=== PATIENT | male | born 1950 | race Caucasian/White ===

== ENCOUNTER 2019-09-21 08:29 | Emergency (ER) | payer MEDICARE, OTHER ==
[~2019-09-21] VITALS: Ht 180.3 cm; Wt 89.0 kg
[2019-09-21] MEDS ORDERED: rabies immune globulin/PF 150 unit/ml inj IMVAC ONE (09:05)
[2019-09-21] MEDS ORDERED: rabies vaccine (PCEC)/PF 2.5 unit kit IMVAC ONE (09:05)
[2019-09-21] MEDS ORDERED: DOXY100C77 PO (09:25)
[2019-09-21 09:37] VITALS: BP 133/74
--- NOTE | 2019-09-21 11:19 | NUR ---
[facility] RN will complete and fax.
== END 2019-09-21 10:04 | disposition home or self-care (01) ==
LOC: ER 08:30
DX: S51.832A Puncture wound without foreign body of left forearm, initial encounter (principal); E78.00 Pure hypercholesterolemia, unspecified; J44.9 Chronic obstructive pulmonary disease, unspecified; K21.9 Gastro-esophageal reflux disease without esophagitis; F41.9 Anxiety disorder, unspecified; F32.9 Major depressive disorder, single episode, unspecified; Z98.890 Other specified postprocedural states; Z88.0 Allergy status to penicillin; Z88.5 Allergy status to narcotic agent; Z79.899 Other long term (current) drug therapy; W64.XXXA Exposure to other animate mechanical forces, initial encounter; Y93.89 Activity, other specified; Y92.89 Other specified places as the place of occurrence of the external cause; Y99.8 Other external cause status
CPT/HCPCS: 73090; 90375; 90471; 90675; 96372; 99284

== ENCOUNTER 2019-09-24 08:06 | Emergency (ER) | payer OTHER ==
[~2019-09-24] VITALS: Ht 180.3 cm; Wt 90.9 kg
[~2019-09-24 08:06] MED LIST: DOXY100C77 PO
[2019-09-24 08:13] VITALS: BP 158/107
[2019-09-24] MEDS ORDERED: rabies vaccine (PCEC)/PF 2.5 unit kit IMVAC ONE (08:25)
--- NOTE | 2019-09-24 08:56 | NUR ---
SECOND ROUND OF RABIES SHOT, ARM IS LESS SWOLLEN PER PT, DENIES FEVER OR CHILLS
== END 2019-09-24 09:15 | disposition home or self-care (01) ==
LOC: ER 08:06
DX: Z23 Encounter for immunization (principal); L03.114 Cellulitis of left upper limb; E78.00 Pure hypercholesterolemia, unspecified; I10 Essential (primary) hypertension; J44.9 Chronic obstructive pulmonary disease, unspecified; K21.9 Gastro-esophageal reflux disease without esophagitis; F41.9 Anxiety disorder, unspecified; Z98.890 Other specified postprocedural states; F32.9 Major depressive disorder, single episode, unspecified; Z88.5 Allergy status to narcotic agent; Z79.899 Other long term (current) drug therapy
CPT/HCPCS: 90471; 90675; 99281

== ENCOUNTER 2019-10-01 08:40 | Emergency (ER) | payer OTHER ==
[~2019-10-01] VITALS: Ht 180.3 cm; Wt 100.0 kg
[2019-10-01 08:50] VITALS: BP 143/65
[2019-10-01] MEDS ORDERED: rabies vaccine (PCEC)/PF 2.5 unit kit IMVAC ONE (08:50)
--- NOTE | 2019-10-01 09:09 | NUR ---
xray in with patient
--- NOTE | 2019-10-01 09:28 | NUR ---
provider in with patient going over xray results
== END 2019-10-01 09:45 | disposition home or self-care (01) ==
LOC: ER 08:40
DX: Z23 Encounter for immunization (principal); M25.532 Pain in left wrist; E78.00 Pure hypercholesterolemia, unspecified; I10 Essential (primary) hypertension; J44.9 Chronic obstructive pulmonary disease, unspecified; K21.9 Gastro-esophageal reflux disease without esophagitis; F41.9 Anxiety disorder, unspecified; F32.9 Major depressive disorder, single episode, unspecified; Z98.890 Other specified postprocedural states; Z88.0 Allergy status to penicillin; Z88.5 Allergy status to narcotic agent; Z79.899 Other long term (current) drug therapy
CPT/HCPCS: 73110; 90471; 90675; 99283

== ENCOUNTER 2019-10-08 08:24 | Emergency (ER) | payer OTHER ==
[~2019-10-08] VITALS: Ht 180.3 cm; Wt 90.9 kg
[2019-10-08 08:27] VITALS: BP 140/104
--- NOTE | 2019-10-08 08:42 | NUR ---
Patient ambulated to room from triage with steady gait.
[2019-10-08] MEDS ORDERED: rabies vaccine (PCEC)/PF 2.5 unit kit IMVAC ONE (09:25)
== END 2019-10-08 10:21 | disposition home or self-care (01) ==
LOC: ER 08:25
DX: Z23 Encounter for immunization (principal); E78.00 Pure hypercholesterolemia, unspecified; I10 Essential (primary) hypertension; J44.9 Chronic obstructive pulmonary disease, unspecified; K21.9 Gastro-esophageal reflux disease without esophagitis; F41.9 Anxiety disorder, unspecified; F32.9 Major depressive disorder, single episode, unspecified; Z98.890 Other specified postprocedural states; Z88.0 Allergy status to penicillin; Z88.5 Allergy status to narcotic agent
CPT/HCPCS: 90471; 90675; 99281

== ENCOUNTER 2019-10-22 07:47 | Emergency (ER) | payer OTHER ==
[~2019-10-22] VITALS: Ht 180.3 cm; Wt 90.9 kg
[2019-10-22] MEDS ORDERED: rabies vaccine (PCEC)/PF 2.5 unit kit IMVAC ONE (08:00)
[2019-10-22 08:16] VITALS: BP 160/78
== END 2019-10-22 08:20 | disposition home or self-care (01) ==
LOC: ER 07:47
DX: Z23 Encounter for immunization (principal); S51.832D Puncture wound without foreign body of left forearm, subsequent encounter; E78.00 Pure hypercholesterolemia, unspecified; I10 Essential (primary) hypertension; J44.9 Chronic obstructive pulmonary disease, unspecified; K21.9 Gastro-esophageal reflux disease without esophagitis; F41.9 Anxiety disorder, unspecified; F32.9 Major depressive disorder, single episode, unspecified; Z98.890 Other specified postprocedural states; Z88.0 Allergy status to penicillin; Z88.5 Allergy status to narcotic agent; W64.XXXD Exposure to other animate mechanical forces, subsequent encounter
CPT/HCPCS: 90471; 90675; 99281